=== PATIENT | female | born 1980 | race Caucasian/White ===

== ENCOUNTER 2017-01-07 08:20 | Emergency (ER) | payer OTHER ==
[~2017-01-07 08:20] MED LIST: AEROCHAMBER1 PKT; ALBUTEROL17 GM INH; CERTAGEN PO; DEPAKOTE PO; DEPO-PROVER150 MG/ML INJ; FAMOTIDINE PO; FLEXERIL PO; FLEXERIL10 MG PO; MEDROL PO; MEDROL4 MG/DOSE- PO; MOTRIN600 MG PO; NEURONTIN PO; NO MEDICATIONS; NORMODYNE100 MG PO; PHENERGAN SUPP25 MG PR; PHENERGAN12.5 MG/SU RC; PHENERGAN25 M1 PO; PHENERGAN25 MG PO; PREDNISONE PO; PRENATAL1 TA1; PRENATAL1 TA1 PO; PROCARDIA XL PO; PROZAC PO; TRANDATE200 MG PO; TYLENOL #3 PO; ULTRAM PO
[2017-01-07 08:35] LABS: INFLUENZA A POS (NEG); INFLUENZA B NEG (NEG)
[2017-01-07 08:51] LABS: URINE SOURCE CLEAN CATCH
[2017-01-07 08:53] LABS: URINE APPEARANCE CLEAR; URINE BLOOD TRACE-INTACT (NEG); URINE COLOR YELLOW; URINE GLUCOSE NEG (NORM); URINE KETONE 1+ (NEG); URINE LEUKOCYTE ESTERASE NEG (NEG); URINE NITRATE NEG (NEG); URINE PH 5.5 (5-8); URINE PROTEIN 1+ (NEG); URINE SPECIFIC GRAVITY >=1.030 (1.003-1.035); URINE UROBILINOGEN 0.2 MG/DL (NORM)
[2017-01-07 08:55] LABS: MICRO INDICATED? YES; URINE BILIRUBIN NEG (NEG)
[2017-01-07 09:09] LABS: BASOPHIL% 1.1 % (0-2.5); EOSINOPHIL% 0.3 % (0.0-7.0); HEMATOCRIT 41.8 % (35.0-45.0); HEMOGLOBIN 13.8 gm/dL (12.0-16.0); LYMPHOCYTE# 0.6 X10e3 (1.0-3.5); LYMPHOCYTE% 20.5 % (17.0-45.0); MEAN CELL VOLUME 86.6 FL (83-96); MEAN CORPUSCULAR HEMOGLOBIN 28.7 PG (28-34); MEAN CORPUSCULAR HGB CONC 33.1 g/dL (30-36); MEAN PLATELET VOLUME 9.1 FL (6.5-11.5); MONOCYTE# 0.7 X10e3 (0-1.0); MONOCYTE% 23.2 % (3.0-12.0); NEUTROPHIL# 1.7 X10e3 (1.5-7.1); NEUTROPHIL% 54.9 % (40-75); PLATELET COUNT 194 X10e3 (140-420); RED BLOOD COUNT 4.82 X10e (3.90-5.30); RED CELL DISTRIBUTION WIDTH 14.4 % (11.0-15.5); WHITE BLOOD COUNT 3.2 X10e3 (4.0-10.5)
[2017-01-07 09:12] LABS: CULTURE INDICATED? YES; URINE BACTERIA 1+ (NEG); URINE RBC 0-2 /[HPF] (0-2); URINE SQUAMOUS EPITHELIAL CELL MANY /[HPF]
[2017-01-07 09:23] LABS: BLOOD UREA NITROGEN 12 mg/dL (9-23); CALCIUM SERUM 8.8 mg/dL (8.4-10.2); CARBON DIOXIDE 24 mmol/L (22-31); CHLORIDE 98 mmol/L (100-111); CREATININE SERUM 0.8 mg/dL (0.6-1.4); GLOM FILT RATE Estimated ABOVE60 mL/min (>60); GLUCOSE FASTING 83 mg/dL (70-110); LIPASE 22 U/L (22-51); POTASSIUM 3.4 mmol/L (3.5-5.1); SODIUM 131 mmol/L (135-145)
[2017-01-07 09:33] LABS: DIFF IND YES
[2017-01-07 09:57] LABS: PLATELET ESTIMATE NORMAL (NORMAL); RBC NORMAL YES
== END 2017-01-07 10:12 | disposition home or self-care (01) ==
LOC: SED 08:20
PROVIDERS: Emergency Medicine
DX: J10.1 Influenza due to other identified influenza virus with other respiratory manifestations (principal); E87.6 Hypokalemia; F41.9 Anxiety disorder, unspecified; F17.210 Nicotine dependence, cigarettes, uncomplicated
CPT/HCPCS: 36415; 80048; 81003; 83690; 85025; 87086; 87088; 87186; 87651; 87804; 96374; 99284; J2405

== ENCOUNTER 2017-05-13 07:45 | Emergency (ER) | payer OTHER ==
[~2017-05-13] VITALS: Ht 152.4 cm; Wt 52.2 kg
--- NOTE | ~2017-05-13 | CT71 ---
[facility] A Service [facility] RADIOLOGY TEXT RESULTS PATIENT: PAULETTE MORA LOCATION: SED : 84 UNIT #: [id number] AGE: [address]: Olvin Murphy MD SEX: F ORDER DR: [id number] [place] [id number] E MR#: [id number] Acc #: [id number] NAME: PAULETTE MORA : 1980 SEX: F STUDY DATE/TIME: 05/13/2017 10:01 UNIT: SED ROOM: STUDY DESCRIPTION: CT Head Wo Contrast Attending Physician: Olvin Murphy M.D. Ordering Physician: Olvin Murphy M.D. MEDICAL IMAGING REPORT This report is preliminary unless electronic signature is present. EXAM CT head without contrast dated 05/13/2017 COMPARISON None. HISTORY Few fevers. Patient vomited yesterday. Head feels hot on top. Dehydrated for 2 months. TECHNIQUE Axial noncontrast images were obtained from the skull base to the vertex. This CT exam was performed with one or more of the following radiation dose reduction techniques: automatic exposure control, adjustment of mA and/or kV according to patient size, and iterative reconstruction. FINDINGS Ventricular size and configuration are normal. There is no evidence of acute infarct or hemorrhage. There are no extraaxial fluid collections. No mass lesion or mass effect is seen. There are no skull fractures. IMPRESSION Normal noncontrast head CT. Dictated by... Juancarlos Walters M.D. THIS IS AN ELECTRONICALLY VERIFIED REPORT Juancarlos Walters M.D. at 05/14/2017 2:15 PM [facility] Service [facility] RADIOLOGY TEXT RESULTS PATIENT: PAULETTE MORA LOCATION: SED : 84 UNIT #: [id number] AGE: [address]: Olvin Murphy MD SEX: F ORDER DR: CPR/pcl TD: 05/13/2017 17:11 JOB #: [id number] MEDICAL IMAGING REPORT Page 1 of 1
[2017-05-13 08:07] LABS: URINE SOURCE CLEAN CATCH
[2017-05-13 08:10] LABS: URINE APPEARANCE CLEAR; URINE BILIRUBIN NEG (NEG); URINE BLOOD NEG (NEG); URINE COLOR YELLOW; URINE GLUCOSE NEG (NORM); URINE KETONE NEG (NEG); URINE LEUKOCYTE ESTERASE NEG (NEG); URINE NITRATE NEG (NEG); URINE PROTEIN NEG (NEG); URINE SPECIFIC GRAVITY >=1.030 (1.003-1.035); URINE UROBILINOGEN 0.2 MG/DL (NORM)
[2017-05-13 08:14] LABS: MICRO INDICATED? NO
[2017-05-13 08:39] LABS: BASOPHIL# 0.1 X10e3 (0-0.3); BASOPHIL% 0.9 % (0-2.5); EOSINOPHIL# 0.1 X10e3 (0-0.7); HEMATOCRIT 42.7 % (35.0-45.0); HEMOGLOBIN 14.2 gm/dL (12.0-16.0); LYMPHOCYTE# 3.7 X10e3 (1.0-3.5); LYMPHOCYTE% 40.5 % (17.0-45.0); MEAN CELL VOLUME 84.2 FL (83-96); MEAN CORPUSCULAR HEMOGLOBIN 28.1 PG (28-34); MEAN CORPUSCULAR HGB CONC 33.3 g/dL (30-36); MEAN PLATELET VOLUME 8.5 FL (6.5-11.5); MONOCYTE# 0.7 X10e3 (0-1.0); MONOCYTE% 7.5 % (3.0-12.0); NEUTROPHIL# 4.6 X10e3 (1.5-7.1); NEUTROPHIL% 50.1 % (40-75); PLATELET COUNT 255 X10e3 (140-420); RED BLOOD COUNT 5.07 X10e (3.90-5.30); RED CELL DISTRIBUTION WIDTH 15.1 % (11.0-15.5); WHITE BLOOD COUNT 9.2 X10e3 (4.0-10.5)
[2017-05-13 08:47] LABS: DIFF IND NO
[2017-05-13 09:03] LABS: ALBUMIN SERUM 4.4 g/dL (3.5-5.0); BILIRUBIN, DIRECT 0.1 mg/dL (0.0-0.2); BILIRUBIN,INDIRECT 0.5 mg/dL (0.0-0.9); BILIRUBIN,TOTAL 0.6 mg/dL (0.2-2.0); BUN/CREATININE RATIO 27.14; CALCIUM SERUM 8.5 mg/dL (8.4-10.2); CREATININE SERUM 0.7 mg/dL (0.6-1.4); GLOM FILT RATE Estimated 112.3 mL/min (>60); POTASSIUM 3.4 mmol/L (3.5-5.1); PROTEIN TOTAL SERUM 7.5 g/dL (6.0-8.3)
== END 2017-05-13 10:45 | disposition home or self-care (01) ==
LOC: SED 07:45
PROVIDERS: Emergency Medicine
DX: S06.0X0A Concussion without loss of consciousness, initial encounter (principal); K21.9 Gastro-esophageal reflux disease without esophagitis; E86.0 Dehydration; F41.9 Anxiety disorder, unspecified; R19.7 Diarrhea, unspecified; F32.9 Major depressive disorder, single episode, unspecified; J34.89 Other specified disorders of nose and nasal sinuses; F17.210 Nicotine dependence, cigarettes, uncomplicated; Z87.442 Personal history of urinary calculi; W01.10XA Fall on same level from slipping, tripping and stumbling with subsequent striking against unspecified object, initial encounter
CPT/HCPCS: 36415; 70450; 80048; 80076; 81003; 82150; 83690; 84703; 85025; 96361; 96374; 99284; J2405